=== PATIENT | female | born 1935 | race Asian ===

== ENCOUNTER 2017-07-20 17:46 | Inpatient (IN) | payer OTHER ==
[~2017-07-20] VITALS: Ht 172.7 cm; Wt 114.8 kg
--- NOTE | ~2017-07-20 | HC ---
[facility] [place] [address] CONSULTATION Name: GEOFFREY ESCALANTE Room #: 440-P ADM IN M.R.#: [id number] Admission: 07/24/17 Attend Phys: Mitchell Pena Discharge: Date of : 37 Report #: [id number] THIS REPORT FOR: //name// CC: Hermes White REASON FOR CONSULTATION: Stage 4 sacral pressure wound in the setting of immobility, debility and morbid obesity. HISTORY OF PRESENT ILLNESS: The patient is an 81-year-old woman well known to me and Dr. Gill from wound care at [facility]. This woman previously weighed 350 pounds and was very debilitated and immobile at home. She developed a stage IV sacral pressure sore requiring surgical debridement at [facility]. There was evidence of osteomyelitis and the patient has been on antibiotics under direction of Dr. White. The patient has lost between 80 and 100 pounds over a period of many weeks due to loss of hunger and anorexia. She has had severe protein-calorie malnutrition with albumin of 1.7. At [facility], we were caring for wound initially with a wound VAC, which was not sealed. We have then been dressing her wound with quarter strength Dakin's packing and the wound has become much screen cleaner. Plans were to prepare her for a Plastic Surgery debridement and flap closure; however, her nutritional status did not permit this. The patient was transferred to [facility], presumably for placement of a PEG feeding tube. GI has been evaluating her for possible sources of her anorexia; however, she is planning to get a PEG feeding tube tomorrow. PAST MEDICAL HISTORY: Diabetes mellitus type 2, hypertension, hypothyroidism, pacemaker placement, hyperlipidemia, morbid obesity. MEDICATIONS: Include meropenem and Aldactone. LABORATORY DATA: Most recent albumin 1.7. ALLERGIES: TO LATEX, QUININE. REVIEW OF SYSTEMS: The patient has suppressed appetite. She is very immobile. PHYSICAL EXAMINATION: GENERAL: Shows an alert, pleasant and conversant 81-year-old morbidly obese woman. HEENT: Mucous membranes are moist. NECK: Supple. LUNGS: Respirations are unlabored. ABDOMEN: Obese and soft. EXTREMITIES: There are no wounds of her extremities. Examination of the patient's back shows a well-demarcated 4 x 3 x 2 cm deep stage 4 sacral pressure sore. Most of the wound is lined with clean, healthy, pink granulation tissue; however, at the base of the wound, there is some ligamentous connective tissue [address] [address] CONSULTATION Name: GEOFFREY ESCALANTE Room #: 440-P [facility].#: [id number] Admission: 07/24/17 Attend Phys: Mitchell Pena Discharge: Date of : 37 Report #: [id number] and a small amount of exposed bone. Wound appears very clean. IMPRESSION: 1. Morbid obesity. 2. Debility and immobility. 3. Diabetes mellitus type 2 with skin ulcer. 4. History of Clostridium difficile positivity. 5. Sacral stage 4 pressure ulcer, status post surgical debridement, planned for flap closure at . 6. Anorexia with severe protein-calorie malnutrition, albumin 1.7. PLAN: Wound care plan will be to pack the wound twice daily with quarter strength Dakin's pack. The patient received a feeding tube for tube feedings while she is here. Plan will be to improve her nutrition, so she may return to for flap closure of her sacral stage 4 pressure wound. We will offload with low air loss mattress and frequent position changes. Wound will be cleaned enough at this time for a flap if her nutrition was improved. Wound care team will follow. By: [id number] Lakhwinder Varela MD /cj
--- NOTE | ~2017-07-20 | D ---
[facility] [place] [address] [place] [address] DISCHARGE SUMMARY Name: GEOFFREY ESCALANTE Room #: 440-P ADM IN M.R.#: [id number] Admission: 07/24/17 Attend Phys: Mitchell Pena Discharge: Date of : 37 Report #: [id number] THIS REPORT FOR: //name// CC: Hermes White FINAL DIAGNOSES: 1. Sacral wound. 2. Severe protein-calorie malnutrition. 3. Clostridium difficile colitis. HOSPITAL COURSE: The patient was admitted from the LTAC facility for placement of a feeding tube. She has had a long-term treatment for a large sacral wound that has been slow to improve. All attempts at oral nutritional support has been offered with little improvement. Her albumin remains 2 or less and ultimately the decision from the LTAC facility was placement of a feeding tube. She was admitted to the hospital and a PEG tube was placed, tube feedings were initiated afterwards, she tolerated without incident. Wound care was ongoing and other medications. 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 She had no recurrent symptoms during her stay. PHYSICAL EXAMINATION ON THE DAY OF DISCHARGE: GENERAL: She was awake and alert, in no distress. VITAL SIGNS: Temperature 97, pulse 91, respirations 20, and blood pressure 110/52. LUNGS: Clear. HEART: Regular. ABDOMEN: Soft, normoactive bowel sounds. EXTREMITIES: No edema. DISPOSITION: She is being transferred to a halfway facility in [facility] closer to her home. She will continue current tube feeding with oral diet as tolerated. PT, OT and wound care, should be under the care of the inhouse physician. Medications will be Tylenol as needed, Aldactone 25 mg, vitamin B12, multivitamin, and vancomycin 250 mg q.i.d. for 2 more weeks with reassessment after that. By: [id number] Stevo Giang MD /nt
--- NOTE | ~2017-07-20 | H ---
[facility] [place] [address] HISTORY AND PHYSICAL Name: GEOFFREY ESCALANTE Room #: 440-P ADM IN M.R.#: [id number] Admission: 07/24/17 Attend Phys: Mitchell Pena Discharge: Date of : 37 Report #: [id number] THIS REPORT FOR: //name// CC: Hermes White DATE OF SERVICE: 07/25/2017 HISTORY OF PRESENT ILLNESS: This is a patient who I got know over at [facility] with a large sacral wound and was transferred to pr with a Dobbhoff tube feeding and this lady made no attempt to try to eat. We then took the Dobhoff out for a few days prior to her coming here and still no significant oral intake. We noted significant malnutrition at the [facility] with albumins around 2 and really no improvement in her wound. She has really very poor insight into her problems, and we suspected over at the [facility] that she has early dementia. PAST MEDICAL HISTORY: Noteworthy for those findings in the HPI, prior to this had been reasonably healthy. MEDICATIONS: List is well documented. FAMILY HISTORY, SOCIAL HISTORY AND REVIEW OF SYSTEMS: Otherwise, negative. PHYSICAL EXAMINATION: GENERAL: Shows her to be awake, alert. She is able to carry on a conversation but insight into her issues is limited. VITAL SIGNS: Stable. HEENT: Negative. NECK: Supple, without thyromegaly or adenopathy. CHEST: Clear. CARDIOVASCULAR: Shows a regular rate and rhythm. ABDOMEN: Soft and nontender. EXTREMITIES: Negative. NEUROLOGIC: Showed nothing focal. Neurologic exam nonfocal as well. LABORATORY PARAMETERS: Stable, except for the albumin of 2. ASSESSMENT: This is a patient with anorexia and weight loss and has developed a sacral decubitus and is not showing any signs of healing both myself and the wound care team agree that a PEG tube is indicated here. The is in agreeance, the patient is in agreeance, but vacillates because of her, what I think is, underlying dementia. By: [id number] Hermes White MD /[facility]
--- NOTE | ~2017-07-20 | P ---
[facility] [place] [address] [place] [address] PROCEDURE REPORT Name: GEOFFREY ESCALANTE Room #: 440-P [facility] IN M.R.#: [id number] Admission: 07/24/17 Attend Phys: Mitchell Pena Discharge: 08/01/17 Date of : 37 Report #: [id number] THIS REPORT FOR: //name// CC: Bro White DATE OF SERVICE: 07/26/2017 PROCEDURE: EGD with PEG tube insertion. PATIENT OF: Bro White M.D. INDICATION FOR PROCEDURE: This patient has completely lost her appetite. She is suffering from severe malnutrition. She has a large sacral decubitus ulcer that refuses to heal and we are thinking that probably if we could get her better nourished, she might get better clinically as well. PEG tube is being inserted today with the patient's permission. The risks of bleeding, perforation, infection, complications of sedation and the possibility I could miss something have been explained to the patient. She has indicated her consent to have the PEG placed by signing. Propofol was slowly titrated before and during this procedure for patient comfort by the anesthesia service. Ancef 1 gram IV piggyback was administered prior to and during the procedure. The [employer] upper videoscope was introduced through the upper esophageal sphincter and advanced under direct visualization to the descending duodenum. Findings are noted on withdrawal of the scope. The duodenal mucosa appears normal throughout its entirety. Pylorus, normal mucosa. Antrum, normal mucosa. Body, normal mucosa. Cardia and fundus, normal mucosa. Retroflexed view did not reveal any abnormalities. The scope was withdrawn into the esophagus. The esophageal mucosa appears normal throughout its entirety. The scope was advanced then into the stomach again and an appropriate site on the anterior abdominal and anterior gastric wall was localized. The anterior abdominal wall was sterilely prepped and draped and 5 mL of 1% Xylocaine was used as a local anesthetic. A 1 cm incision was then made with a scalpel. Then, a trocar was introduced through this incision through the anterior abdominal wall and anterior gastric wall into the gastric lumen. Then, a guidewire was advanced through the trocar and grasped endoscopically with a snare inside the stomach and pulled up through the patient's esophagus, mouth and out through the mouth, and then a #20 pull PEG tube was tied onto the guidewire and then the PEG tube was pulled down through the patient's mouth, esophagus and stomach out through the anterior gastric and anterior abdominal wall and anchored into position. Then, the Fujinon upper videoscope was reintroduced through the upper esophageal [address] [address] PROCEDURE REPORT Name: GEOFFREY ESCALANTE Room #: 440-P [facility] IN M.R.#: [id number] Admission: 07/24/17 Attend Phys: Mitchell Pena Discharge: 08/01/17 Date of : 37 Report #: [id number] sphincter and advanced under direct visualization through the esophagus and down to the stomach again, where the PEG tube bumper was seen safely located on the anterior body of the stomach. There has been minimal internal blood loss. External blood loss was less than 5 mL. The scope was withdrawn. A bumper and sterile dressing was applied. The patient tolerated the procedure well and she went to the recovery room in stable condition. IMPRESSION: 1. Normal esophagogastroduodenoscopy to descending duodenum. 2. Successful PEG placement of a 20-Citizen [place] PEG tube, as above. RECOMMENDATIONS: It is okay to use the PEG tube tonight for medication administration, but not for tube feedings. Tomorrow morning if bowel sounds are positive, we can begin tube feedings as per dietitian recommendations. This should be accompanied by a total of 400 mL of free water daily through the PEG tube. We will continue Ancef 1 gram IV piggyback q. 8 hours for 2 more doses. Thank you very much once again for allowing me to participate in her care, Dr. White. <ELECTRONICALLY SIGNED> By: Alley Johnston DO 08/01/17 1709 [id number] Alley Johnston DO /nt
[2017-07-24 11:50] VITALS: BP 117/54
[2017-07-24] MEDS ORDERED: MEROPENEM-1000 MG/50 IVPB (13:39)
[2017-07-24] MEDS ORDERED: UNICOMPLEX M TA1 TA1 PO (13:40)
[2017-07-24] MEDS ORDERED: PILOCARPINE HCL5 M1 PO (13:42)
[2017-07-24] MEDS ORDERED: ALDACTONE25 MG PO (13:43)
[2017-07-24] MEDS ORDERED: VITAMIN B-12500 MCG PO (13:45)
[2017-07-24] MEDS ORDERED: ACETAMINOPHEN500 M1 PO (13:47)
[2017-07-24 15:20] LABS: ABSOLUTE NEUTROPHILS 7.5 thou/uL (1.4-8.2); EOSINOPHILS 2.1 % (0.0-3.0); HEMATOCRIT 33.4 % (37.0-47.0); HEMOGLOBIN 10.9 gm/dL (12.0-15.0); LYMPHOCYTES 17.5 % (24.0-44.0); MCH 29.2 pg (26.0-34.0); MCHC 32.8 g/dL (28.0-37.0); MCV 89.1 fL (80.0-100.0); MONOCYTES 6.9 % (1.0-8.0); PLATELET COUNT 453 thou/uL (150-400); POLYS 72.5 % (36.0-66.0); RBC 3.75 mil/uL (4.20-5.00); RDW 17.1 % (10.5-14.5); WBC 10.3 thou/uL (4.0-11.0)
[2017-07-24 15:22] LABS: MANUAL DIFF NO
[2017-07-24 15:37] LABS: ALBUMIN 1.7 g/dL (3.4-5.0); CALCIUM 8.7 mg/dL (8.5-10.1); CREATININE 1.3 mg/dL (0.6-1.0); POTASSIUM 3.1 mmol/L (3.5-5.1); TOTAL BILIRUBIN 0.4 mg/dL (<0.1-1.0); TOTAL PROTEIN 5.7 g/dL (6.4-8.2)
[2017-07-24 16:00] VITALS: BP 95/48
[2017-07-24 19:23] VITALS: BP 100/42
[2017-07-25] VITALS: BP 111/43
[2017-07-25 03:43] VITALS: BP 103/56
[2017-07-25 07:44] VITALS: BP 103/55
[2017-07-25 19:17] VITALS: BP 116/37
[2017-07-26 04:09] VITALS: BP 108/53
[2017-07-26 07:28] VITALS: BP 109/51
[2017-07-26 18:20] VITALS: BP 141/37
[2017-07-26 19:23] VITALS: BP 125/38
[2017-07-27 03:33] VITALS: BP 113/49
[2017-07-27 07:50] VITALS: BP 119/53
[2017-07-27 15:37] VITALS: BP 120/44
[2017-07-27 20:34] VITALS: BP 119/42
[2017-07-28 08:00] VITALS: BP 121/48
[2017-07-28 16:17] VITALS: BP 113/41
[2017-07-28 20:55] VITALS: BP 114/55
[2017-07-29 08:42] VITALS: BP 121/59
[2017-07-29 16:58] VITALS: BP 109/40
[2017-07-29 19:28] VITALS: BP 118/47
[2017-07-30 04:14] VITALS: BP 120/42
[2017-07-30 07:45] VITALS: BP 124/40
[2017-07-30 16:35] VITALS: BP 133/82
[2017-07-30 20:56] VITALS: BP 128/50
[2017-07-31 04:59] VITALS: BP 115/51
[2017-07-31 07:49] VITALS: BP 101/84
[2017-07-31] MEDS ORDERED: VANCOMYCIN HCL10 GM PO (12:56)
[2017-07-31 15:38] VITALS: BP 118/58
[2017-07-31 20:00] VITALS: BP 122/46
[2017-08-01 04:00] VITALS: BP 125/51
[2017-08-01 08:00] VITALS: BP 110/52
== END 2017-08-01 11:45 | DRG 592 ==
LOC: 2N 17:46 → 4S 07-24 09:18
PROVIDERS: Internal Medicine
PROC: 05H533Z Insertion of Infusion Device into Right Subclavian Vein, Percutaneous Approach (ICD-10-PCS; principal; 2017-07-24)
PROC: 0DH68UZ Insertion of Feeding Device into Stomach, Via Natural or Artificial Opening Endoscopic (ICD-10-PCS; 2017-07-26)
DX: L89.154 Pressure ulcer of sacral region, stage 4 (principal); E43 Unspecified severe protein-calorie malnutrition; A04.72 Enterocolitis due to Clostridium difficile, not specified as recurrent; R53.81 Other malaise; K76.0 Fatty (change of) liver, not elsewhere classified; F03.90 Unspecified dementia, unspecified severity, without behavioral disturbance, psychotic disturbance, mood disturbance, and anxiety; E66.01 Morbid (severe) obesity due to excess calories; E11.622 Type 2 diabetes mellitus with other skin ulcer; E03.9 Hypothyroidism, unspecified; I10 Essential (primary) hypertension; E78.5 Hyperlipidemia, unspecified; Z88.8 Allergy status to other drugs, medicaments and biological substances; Z91.040 Latex allergy status; Z79.1 Long term (current) use of non-steroidal anti-inflammatories (NSAID); Z95.0 Presence of cardiac pacemaker; Z79.899 Other long term (current) drug therapy; Z68.38 Body mass index [BMI] 38.0-38.9, adult
CPT/HCPCS: 10100; 62110; 62900